=== PATIENT | female | born 1970 | race Hispanic/Latino ===

== ENCOUNTER 2017-12-29 03:53 | Emergency (ER) | payer SELFPAY ==
--- NOTE | 2017-12-29 04:53 | C.PDOC ---
History Of Present Illness The patient reports that she had a feeling of palpitations, which was associated with shortness of breath and feelings of nervousness this evening. The patient reports that she had a similar symptoms 4 days ago, was seen at [facility], had negative EKG and labs and was discharged home. Patient reports that she currently feels symptoms have resolved. Now complains of increased gas and belching after taking vitamins today. Denies chest pain, numbness, weakness, travel, GI bleeding, dysuria, back pain, nausea, vomiting, Time Seen by Provider: 12/29/17 04:15 Chief Complaint (Nursing): Abdominal Pain Past Medical History Reviewed: Historical Data, Nursing Documentation, Vital Signs Vital Signs: Last Vital Signs Temp 97.5 F L 12/29/17 04:05 Pulse 70 12/29/17 04:05 Resp 1 L 12/29/17 04:05 BP 125/81 12/29/17 04:05 Pulse Ox 99 12/29/17 04:58 - Medical History PMH: No Chronic Diseases Surgical History: Cholecystectomy Family History: States: No Known Family Hx - Social History Hx Alcohol Use: Yes Hx Substance Use: No - Immunization History Hx Tetanus Toxoid Vaccination: Yes Hx Influenza Vaccination: No Hx Pneumococcal Vaccination: No Review Of Systems Except As Marked, All Systems Reviewed And Found Negative. Physical Exam - Physical Exam Appears: Non-toxic, No Acute Distress Skin: Normal Color, Warm, No Rash Head: Atraumatic, Normacephalic Eye(s): bilateral: Normal Inspection, PERRL, EOMI Oral Mucosa: Moist Throat: No Erythema, No Exudate Neck: Normal ROM, Supple Chest: Symmetrical Cardiovascular: Rhythm Regular Respiratory: Normal Breath Sounds Gastrointestinal/Abdominal: Bowel Sounds (active), Soft, No Tenderness, No Guarding, No Rebound, No Hernia Back: Normal Inspection, No CVA Tenderness Extremity: Normal ROM, No Tenderness, No Swelling Neurological/Psych: Oriented x3, Normal Motor, Normal Sensation Gait: Steady ED Course And Treatment O2 Sat by Pulse Oximetry: 99 (on RA) Pulse Ox Interpretation: Normal Medical Decision Making Medical Decision Making: On re-exam, the patient reports improvement of symptoms. Lungs are CTA, heart is RRR, abdomen is soft, non-tender and tolerating Po well. Ambulatory in the ED with steady gait. Patient was instructed to follow up with the medical doctor /clinic within 1-2 days. Return to the ED if worsened. Disposition - Disposition Referrals: [facility] [Outside] Disposition: HOME/ ROUTINE Disposition Time: 05:27 Condition: GOOD Additional Instructions: Follow up with the medical doctor/clinic within 1-2 days. Return to the ED if worsened. Prescriptions: Famotidine [Pepcid] 20 mg PO BID #20 tab Instructions: Acid Reflux (Gastroesophageal Reflux Disease), Adult (DC) Forms: Local Eye Site (Italian) - Clinical Impression Clinical Impression: Gastroesophageal reflux disease
[2017-12-29] MEDS ORDERED: Alum-Mag Hydrox-Simethicone Susp (30 mL) PO STA (04:54)
[2017-12-29] MEDS ORDERED: Alum-Mag Hydrox-Simethicone Susp (30 mL) ONE (05:00)
[2017-12-29 05:39] VITALS: BP 117/86; PULSE 74; RESP 18; TEMP 98.5; O2SAT 97
== END 2017-12-29 05:40 | disposition home or self-care (01) ==
LOC: C.ER 03:53
DX: K21.9 Gastro-esophageal reflux disease without esophagitis (principal)